=== PATIENT | female | born 1980 | race Caucasian/White ===

== ENCOUNTER 2021-03-06 11:03 | Inpatient (IN) | payer BC, OTHER ==
[2021-03-06 11:58] VITALS: BMI 33.3
[2021-03-06] MEDS ORDERED: MAGNESIUM HYDROX 2400MG/30ML ORAL SUSPENSION 30 ML CUP PO PRN (12:50)
[2021-03-06] MEDS ORDERED: MAG HYDROX/AL HYDROX/SIMETH 30 ML UNIT-DOSE CUP PO PRN (12:50)
[2021-03-06] MEDS ORDERED: ACETAMINOPHEN 325 MG TABLET (FP) PO PRN ×2 (12:50)
[2021-03-06] MEDS ORDERED: MAGNESIUM CITRATE 300 ML BOTTLE PO PRN (12:50)
[2021-03-06] MEDS ORDERED: METHOCARBAMOL 500 MG TABLET PO PRN (12:50)
[2021-03-06] MEDS ORDERED: ONDANSETRON *ODT* 4 MG TABLET SL PRN (12:50)
[2021-03-06] MEDS ORDERED: BISMUTH SUBSALICYLATE 524 MG/30 ML UD PO PRN (12:50)
[2021-03-06] MEDS ORDERED: LORazepam 1 MG TABLET PO PRN (12:50)
[2021-03-06] MEDS ORDERED: MENTHOL/PHENOL 1 EACH UD MM PRN (12:50)
[2021-03-06] MEDS: hydrOXYzine PAMOATE 25 MG CAPSULE (FP) PO SCH ×3 (13:50→22:14)
[2021-03-06] MEDS: PRENATAL VITAMINS W/ FOLIC ACID TABLET (FP) PO SCH (13:50)
[2021-03-06 16:59] LABS: HEMATOCRIT 36.8 % (32.4-45.2); MCH 31.1 pg (25.7-33.7); MCHC 32.7 g/dl (32.0-36.0); MEAN CELL VOLUME 95.1 fl (80-96); MEAN PLT VOLUME 8.8 fl (7.5-11.1); PLATELET COUNT 254 K/MM3 (134-434); RBC 3.87 M/mm3 (3.60-5.2); RDW 15.9 % (11.6-15.6); WHITE BLOOD COUNT 3.7 K/mm3 (4.0-10.0)
[2021-03-06 17:04] LABS: ALBUMIN 3.6 g/dl (3.4-5.0); BLOOD UREA NITROGEN 11.7 mg/dL (7-18); CALCIUM 7.7 mg/dL (8.5-10.1)
[2021-03-06 17:08] LABS: CREATININE 0.8 mg/dL (0.55-1.3)
[2021-03-06 17:10] LABS: BILIRUBIN,TOTAL 0.5 mg/dL (0.2-1); TOT PROT 7.4 g/dl (6.4-8.2)
[2021-03-06] MEDS: LORazepam 2 MG TABLET PO SCH ×2 (17:35→22:12)
[2021-03-06] MEDS: THIAMINE HCL 100 MG TABLET (FP) PO SCH (22:14)
[2021-03-06] MEDS: MELATONIN 5 MG TABLETS PO SCH (22:14)
[2021-03-07] MEDS: LORazepam 2 MG TABLET PO SCH ×4 (05:59→22:03)
[2021-03-07] MEDS: hydrOXYzine PAMOATE 25 MG CAPSULE (FP) PO SCH ×5 (06:17→22:04)
[2021-03-07] MEDS: PRENATAL VITAMINS W/ FOLIC ACID TABLET (FP) PO SCH (10:13)
[2021-03-07] MEDS: THIAMINE HCL 100 MG TABLET (FP) PO SCH (22:03)
[2021-03-07] MEDS: MELATONIN 5 MG TABLETS PO SCH (22:03)
[2021-03-08] MEDS: hydrOXYzine PAMOATE 25 MG CAPSULE (FP) PO SCH ×5 (06:07→22:32)
[2021-03-08] MEDS: LORazepam 1 MG TABLET PO SCH ×4 (06:14→22:33)
[2021-03-08] MEDS: PRENATAL VITAMINS W/ FOLIC ACID TABLET (FP) PO SCH (10:09)
[2021-03-08] MEDS: THIAMINE HCL 100 MG TABLET (FP) PO SCH (22:32)
[2021-03-08] MEDS: MELATONIN 5 MG TABLETS PO SCH (22:33)
[2021-03-08] MEDS: IBUPROFEN 400 MG TABLET (FP) PO PRN (22:35)
[2021-03-09] MEDS ORDERED: LORazepam 0.5 MG TABLET PO PRN
[2021-03-09] MEDS: LORazepam 0.5 MG TABLET PO SCH ×4 (05:55→22:40)
[2021-03-09] MEDS: hydrOXYzine PAMOATE 25 MG CAPSULE (FP) PO SCH ×5 (05:55→22:40)
[2021-03-09] MEDS: IBUPROFEN 400 MG TABLET (FP) PO PRN ×2 (05:59→17:43)
[2021-03-09 06:06] LABS: SARS-CoV-2 NAA Not Detected (Not Detected)
[2021-03-09 10:09] LABS: SGOT/AST 105 U/L (15-37); SGPT/ALT 77 U/L (13-61)
[2021-03-09] MEDS: PRENATAL VITAMINS W/ FOLIC ACID TABLET (FP) PO SCH (10:19)
[2021-03-09] MEDS: MELATONIN 5 MG TABLETS PO SCH (22:40)
[2021-03-09] MEDS: THIAMINE HCL 100 MG TABLET (FP) PO SCH (22:40)
[2021-03-10] MEDS ORDERED: LORazepam 0.5 MG TABLET PO ONE (05:00)
[2021-03-10] MEDS: hydrOXYzine PAMOATE 25 MG CAPSULE (FP) PO SCH ×3 (06:03→13:34)
[2021-03-10 09:53] VITALS: BP 106/78; PULSE 105; TEMP 96.8
[2021-03-10] MEDS: PRENATAL VITAMINS W/ FOLIC ACID TABLET (FP) PO SCH (10:29)
[2021-03-10] MEDS: IBUPROFEN 400 MG TABLET (FP) PO PRN (13:23)
== END 2021-03-10 14:10 | disposition other institution (70) | DRG 897 ==
LOC: YASAS 11:03 → Y6N 12:50
PROVIDERS: ADMIT Allergy & Immunology; ATTEND Allergy & Immunology
PROC: HZ2ZZZZ Detoxification Services for Substance Abuse Treatment (ICD-10-PCS; principal; 2021-03-06)
DX: F10.230 Alcohol dependence with withdrawal, uncomplicated (principal); F10.282 Alcohol dependence with alcohol-induced sleep disorder; K76.0 Fatty (change of) liver, not elsewhere classified; M54.5 Low back pain; G89.29 Other chronic pain; E66.9 Obesity, unspecified; Z68.33 Body mass index [BMI] 33.0-33.9, adult; R74.01 Elevation of levels of liver transaminase levels; R73.9 Hyperglycemia, unspecified
CPT/HCPCS: 36415; 80053; 81025; 82962; 84450; 84460; 85027; 86780; C9803; U0003; U0005

== ENCOUNTER 2021-03-10 14:22 | Inpatient (IN) | payer BC, OTHER ==
[2021-03-10] MEDS ORDERED: MAGNESIUM CITRATE 300 ML BOTTLE PO PRN (16:22)
[2021-03-10] MEDS ORDERED: MAGNESIUM HYDROX 2400MG/30ML ORAL SUSPENSION 30 ML CUP PO PRN (16:22)
[2021-03-10] MEDS ORDERED: LOPERAMIDE HCL 2 MG CAPSULE PO PRN (16:22)
[2021-03-10] MEDS ORDERED: MAG HYDROX/AL HYDROX/SIMETH 30 ML UNIT-DOSE CUP PO PRN (16:22)
[2021-03-10] MEDS ORDERED: P-EPHED 60MG/TRIPROLIDI 2.5MG TABLET PO PRN (16:22)
[2021-03-10] MEDS ORDERED: guaiFENesin 200 MG/10 ML 10 ML UNIT-DOSE CUPS PO PRN (16:22)
[2021-03-10] MEDS ORDERED: MENTHOL/PHENOL 1 EACH UD MM PRN (16:22)
[2021-03-10] MEDS: hydrOXYzine PAMOATE 25 MG CAPSULE (FP) PO SCH ×2 (17:37→22:24)
[2021-03-10] MEDS: IBUPROFEN 400 MG TABLET (FP) PO PRN (17:54)
[2021-03-10] MEDS: MELATONIN 5 MG TABLETS PO SCH (22:24)
[2021-03-10] MEDS: THIAMINE HCL 100 MG TABLET (FP) PO SCH (22:24)
[2021-03-11] MEDS: ACETAMINOPHEN 325 MG TABLET (FP) PO PRN (06:32)
[2021-03-11] MEDS: hydrOXYzine PAMOATE 25 MG CAPSULE (FP) PO SCH ×5 (06:32→21:07)
[2021-03-11] MEDS: PRENATAL VITAMINS W/ FOLIC ACID TABLET (FP) PO SCH (10:27)
[2021-03-11] MEDS: IBUPROFEN 400 MG TABLET (FP) PO PRN ×2 (10:29→17:28)
[2021-03-11] MEDS: MELATONIN 5 MG TABLETS PO SCH (21:07)
[2021-03-11] MEDS: THIAMINE HCL 100 MG TABLET (FP) PO SCH (21:07)
[2021-03-12] MEDS: IBUPROFEN 400 MG TABLET (FP) PO PRN ×2 (06:27→22:07)
[2021-03-12] MEDS: hydrOXYzine PAMOATE 25 MG CAPSULE (FP) PO SCH ×5 (06:27→22:04)
[2021-03-12] MEDS ORDERED: PT OWN MED DRAWER 7, Y5N ONE (08:50)
[2021-03-12] MEDS: PRENATAL VITAMINS W/ FOLIC ACID TABLET (FP) PO SCH (09:27)
[2021-03-12] MEDS: SODIUM CHLORIDE NASAL SPRAY 44 ML BOTTLE NS PRN (10:31)
[2021-03-12 17:09] LABS: EPI CELLS >36 /uL (0-25.1); HYALINE CASTS 0 /uL (0-3.1); PH,URINE 6.5 (5.0-8.0); URINE APPEARANCE CLOUDY; URINE BACTERIA 1153 /uL (0-1359); URINE BILIRUBIN NEGATIVE (NEGATIVE); URINE COLOR YELLOW; URINE GLUCOSE (UA) NEGATIVE (NEGATIVE); URINE KETONE NEGATIVE (NEGATIVE); URINE LEUK ESTERASE 1+ (NEGATIVE); URINE NITRITE NEGATIVE (NEGATIVE); URINE PROTEIN NEGATIVE (NEGATIVE); URINE RBC 4 /uL (0-23.9); URINE UROBILINOGEN 0.2 mg/dL (0.2-1.0); URINE WBC 80 /uL (0-25.8)
[2021-03-12] MEDS: THIAMINE HCL 100 MG TABLET (FP) PO SCH (22:04)
[2021-03-12] MEDS: MICONAZOLE NITRATE 2% VAGINAL CREAM 45 GM TUBE VG SCH (22:04)
[2021-03-12] MEDS: MELATONIN 5 MG TABLETS PO SCH (22:04)
[2021-03-13] MEDS: hydrOXYzine PAMOATE 25 MG CAPSULE (FP) PO SCH ×5 (06:28→21:06)
[2021-03-13] MEDS: SODIUM CHLORIDE NASAL SPRAY 44 ML BOTTLE NS PRN ×2 (06:30→17:03)
[2021-03-13] MEDS: IBUPROFEN 400 MG TABLET (FP) PO PRN ×2 (06:30→21:09)
[2021-03-13] MEDS ORDERED: PT OWN MED DRAWER 7, Y5N ONE ×3 (06:30→20:01)
[2021-03-13] MEDS: PRENATAL VITAMINS W/ FOLIC ACID TABLET (FP) PO SCH (10:18)
[2021-03-13] MEDS: MELATONIN 5 MG TABLETS PO SCH (21:06)
[2021-03-13] MEDS: THIAMINE HCL 100 MG TABLET (FP) PO SCH (21:06)
[2021-03-13] MEDS: MICONAZOLE NITRATE 2% VAGINAL CREAM 45 GM TUBE VG SCH (21:07)
[2021-03-14] MEDS: hydrOXYzine PAMOATE 25 MG CAPSULE (FP) PO SCH ×2 (06:20→10:36)
[2021-03-14] MEDS: IBUPROFEN 400 MG TABLET (FP) PO PRN (06:21)
[2021-03-14 07:29] VITALS: BP 106/71; PULSE 72; TEMP 97.8
[2021-03-14] MEDS ORDERED: NALTREXONE HCL 50 MG TABLET PO SCH (10:00)
[2021-03-14] MEDS: PRENATAL VITAMINS W/ FOLIC ACID TABLET (FP) PO SCH (10:35)
[2021-03-14] MEDS: ACETAMINOPHEN 325 MG TABLET (FP) PO PRN (10:47)
== END 2021-03-14 11:50 | disposition home or self-care (01) | DRG 772 ==
LOC: YASAS 14:22 → Y5N 14:24
PROVIDERS: ADMIT Allergy & Immunology; ATTEND Allergy & Immunology
PROC: HZ42ZZZ Group Counseling for Substance Abuse Treatment, Cognitive-Behavioral (ICD-10-PCS; principal; 2021-03-10)
DX: F10.20 Alcohol dependence, uncomplicated (principal); F32.9 Major depressive disorder, single episode, unspecified; K76.0 Fatty (change of) liver, not elsewhere classified; B37.3 Candidiasis of vulva and vagina; M54.5 Low back pain; G89.29 Other chronic pain; E66.9 Obesity, unspecified; Z68.32 Body mass index [BMI] 32.0-32.9, adult
CPT/HCPCS: 81003